=== PATIENT | male | born 1960 | race Caucasian/White ===

== ENCOUNTER 2022-06-22 12:01 | Emergency (ER) | payer BC ==
[~2022-06-22] VITALS: Ht 177.8 cm; Wt 89.8 kg
[2022-06-22] VITALS (9 sets, daily range): BP systolic 99–148; BP diastolic 54–80
[2022-06-22] MEDS ORDERED: ZOFRAN4 MG/TAB PO (14:08)
[2022-06-22] MEDS ORDERED: NAPROXEN500 MG PO (14:08)
[2022-06-22] MEDS ORDERED: PERCOCET1 TA2 PO (14:08)
[2022-06-22] MEDS ORDERED: METHOCARBAMOL500 MG PO (14:08)
== END 2022-06-22 14:25 | disposition home or self-care (01) | DRG 185 ==
LOC: ED 12:01
DX: S22.42XA Multiple fractures of ribs, left side, initial encounter for closed fracture (principal); W18.39XA Other fall on same level, initial encounter; Y93.17 Activity, water skiing and wake boarding